=== PATIENT | female | born 1960 | race Caucasian/White ===

== ENCOUNTER 2017-04-02 09:18 | Emergency (ER) | payer OTHER ==
[~2017-04-02] VITALS: Ht 172.7 cm; Wt 111.1 kg
[~2017-04-02 09:18] MED LIST: CYTOMEL25 MC1 PO; METHYLPREDNISOLO4 M1 PO
[2017-04-02 09:25] VITALS: BP 121/74
--- NOTE | 2017-04-02 09:46 | ED INFLUENZA/URI COMPLAINT ---
History of Present Illness General Chief Complaint: General Adult Stated Complaint: SORE THROAT, 5 TICKS BITE Source: patient Exam Limitations: no limitations Vital Signs & Intake/Output Vital Signs & Intake/Output Vital Signs Date Time Temp Pulse Resp B/P B/P Pulse O2 O2 Flow FiO2 Mean Ox Delivery Rate 04/02 0925 97.8 78 15 121/74 96 Room Air Room Air Allergies Coded Allergies: latex (TONGUE SWELLS 04/02/17) monosodium glutamate (MIGRAINES 04/02/17) orange (MIGRAINES 04/02/17) Uncoded Allergies: DYE (THROAT SWELLING 03/15/12) FOOD PRESERVATIVES (MIGRAINE , TONGUE SWELLING 03/15/12) SOME PLASTICS (TONGUE SWELLING 03/15/12) THYROXINE (PER PT BODY CAN NOT TOLERATE 10/20/16) Reconcile Medications Albuterol Sulfate (Proair Hfa) 90 MCG HFA.AER.AD 2 PUF INH Q4-6 PRN PRN DYSPNEA Albuterol Sulfate (Proair Hfa) 90 MCG HFA.AER.AD 2 PUF INH Q4-6 PRN PRN DYSPNEA Amoxicillin 250 MG CAPSULE 2 CAP PO BID BRONCHITIS Liothyronine Sodium (Cytomel) 25 MCG TABLET 1 TAB PO TID THYROID (Reported) Methylprednisolone 4 MG TABLET 4 MG PO DAILY ADRENAL GLANDS (Reported) Triage Note: PT TO ED FOR C/C OF SORE THROAT SINCE SUNDAY, BEEN AROUND PEOPLE WITH STREP THROAT. ALSO PULLED A TICK OFF STOMACH LAST NIGHT "HE JUST STARTED TO FEED, BUT WASN'T ENGORGED." ALSO REPORTS THREE TICK BITES LAST WEEK AND ONE LAST MONTH. Triage Nurses Notes Reviewed? yes Onset: Gradual Duration: day(s): (6) Timing: recent history Severity: mild, moderate No Modifying Factors: none Associated Symptoms: cough, sore throat HPI: This is a 56 old female presents to the ER with chief complaint of sore throat since last Sunday. She states over the last week progressive gotten worse subjective fever and chills. Since that time she feels it is subtle in her chest. She also reports 5 tick bites over the past 2 weeks. She states not none of the techs were engorged and she was able to get them out. Denies a joint pain or rash. She has a history of lyme disease in the past. She wasn't sure if the sore throat was part of possible Lyme. She is a nonsmoker. Past History Travel History Traveled to [place] past 21 day No Medical History Any Pertinent Medical History? see below for history Neurological: NONE EENT: allergies Cardiovascular: NONE Respiratory: NONE Gastrointestinal: NONE Hepatic: NONE Renal: NONE Musculoskeletal: NONE Psychiatric: NONE Endocrine: ADRENAL INSUFFICIENCY HOSHIMOTOS Blood Disorders: NONE Cancer(s): NONE LAUNDRY HOUSEKEEPING AIDE/Reproductive: NONE Surgical History Surgical History: non-contributory Psychosocial History What is your primary language Kyrgyz Tobacco Use: Never used ETOH Use: denies use Illicit Drug Use: denies illicit drug use Family History Hx Contributory? No Review of Systems Review of Systems Constitutional: Reports: fever. Denies: chills. EENTM: Reports: throat pain. Respiratory: Reports: cough, short of breath, sputum production. Cardiovascular: Denies: chest pain. GI: Reports: no symptoms. Genitourinary: Reports: no symptoms. Musculoskeletal: Denies: joint pain, joint swelling, muscle pain. Skin: Reports: no symptoms. Neurological/Psychological: Reports: anxiety. Hematologic/Endocrine: Denies: bruising, bleeding, polyuria. Immunologic/Allergic: Reports: no symptoms. All Other Systems: Reviewed and Negative Physical Exam Physical Exam General Appearance: well developed/nourished, awake, anxious, mild distress, obese Head: atraumatic, normal appearance Eyes: Bilateral: normal appearance, PERRL, EOMI. Ears, Nose, Throat: normal ENT inspection, hearing grossly normal Neck: normal inspection, supple, full range of motion Respiratory: decreased breath sounds Cardiovascular: regular rate/rhythm Peripheral Pulses: 2+ radial (R), 2+ radial (L) Neurologic/Psych: no motor/sensory deficits, awake, alert, oriented x 3 Skin: intact, normal color, warm/dry Core Measures Severe Sepsis Present: No Septic Shock Present: No Progress Differential Diagnosis: pneumonia, BRONCHITIS, PHARYNGITIS, lYME DISEASE Plan of Care: Orders Procedure Date/time Status LYME TITRE 04/02 0942 Active THROAT CULTURE W/QUICK STREP 04/02 0928 Active Laboratory Tests 04/02/17 0949: Lyme Disease Antibody Pending Diagnostic Imaging: Viewed by Me: Radiology Read. Discussed w/RAD: Radiology Read. CXR Impression: PATIENT: EDDY BALTAZAR PRESENT AGE: 56 PATIENT ACCOUNT NO: [id number] : 62 LOCATION: [facility] ORDERING PHYSICIAN: LUAN BAEZ MD SERVICE DATE: 04/02/17 EXAM TYPE: RAD - XRY-CHEST XRAY , PA AND LATERAL EXAMINATION: XR CHEST CLINICAL INFORMATION: Cough, fever and chills. COMPARISON: 12/29/2013 TECHNIQUE: 2 views of the chest were obtained. FINDINGS: Lungs are clear. No interstitial infiltrate, consolidation or pleural effusion. Cardiac silhouette is normal in size. Mediastinal and hilar contours are normal. Left diaphragm is slightly elevated but this could be due to gaseous distention of the stomach at time of radiograph acquisition. No acute findings in the mildly degenerated thoracic spine. IMPRESSION: No evidence of pneumonia. DICTATED BY: LUIS ALBERTO ELIZABETH MD DATE/TIME DICTATED:04/02/171004 LATHE WINDER:BOBY DATE/TIME TRANSCRIBED:04/02/171004 CONFIDENTIAL, DO NOT COPY WITHOUT APPROPRIATE AUTHORIZATION. <Electronically signed in Other Vendor System> SIGNED BY: LUIS ALBERTO ELIZABETH MD 04/02/17 1010 Initial ED EKG: none Departure Departure Time of Disposition: 1032 Disposition: HOME OR SELF CARE Condition: Stable Clinical Impression Primary Impression: Pharyngitis Referrals: RAVI BEST,NHAN Aguilar (PCP/Family) Additional Instructions: Please take Motrin or Tylenol as needed for pain. Drink plenty of warm fluids. Use the inhaler as directed. Follow-up with your doctor in the office. He will receive a call back for any positive results. Departure Forms: Customer Survey General Discharge Information Prescriptions: Current Visit Scripts Albuterol Sulfate (Proair Hfa) 2 PUF INH Q4-6 PRN PRN DYSPNEA #1 INHAL Albuterol Sulfate (Proair Hfa) 2 PUF INH Q4-6 PRN PRN DYSPNEA #1 INHAL Amoxicillin 2 CAP PO BID #28 CAP
--- NOTE | 2017-04-02 10:10 | RADIOLOGY REPORT ---
EXAMINATION: XR CHEST CLINICAL INFORMATION: Cough, fever and chills. COMPARISON: 12/29/2013 TECHNIQUE: 2 views of the chest were obtained. FINDINGS: Lungs are clear. No interstitial infiltrate, consolidation or pleural effusion. Cardiac silhouette is normal in size. Mediastinal and hilar contours are normal. Left diaphragm is slightly elevated but this could be due to gaseous distention of the stomach at time of radiograph acquisition. No acute findings in the mildly degenerated thoracic spine. IMPRESSION: No evidence of pneumonia.
[2017-04-02] MEDS ORDERED: PROAIR HFA8.5 GM INH ×2 (10:33→10:46)
[2017-04-02] MEDS ORDERED: AMOXICILLIN250 M3 PO (10:46)
== END 2017-04-02 10:54 ==
LOC: ERH 09:18
DX: J02.9 Acute pharyngitis, unspecified (principal)
CPT/HCPCS: 86618